=== PATIENT | male | born 1995 | race Caucasian/White ===

== ENCOUNTER 2017-04-05 18:29 | Emergency (ER) | payer SELFPAY ==
[~2017-04-05] VITALS: Ht 195.6 cm; Wt 86.2 kg
--- NOTE | 2017-04-05 19:54 | ED Integumentary General ---
General Chief Complaint: Laceration Stated Complaint: RIGHT FOOT LACERATION Source: patient, spouse (significant other) Exam Limitations: no limitations History of Present Illness Time seen by provider: 19:42 Initial Comments Just prior to arrival the patient stepped on his own unfolded pocket knife while sharpening it on his foot. He has a laceration on the bottom right foot with a lot of pain. He came to the ER by private conveyance. He is had a tetanus shot about 3 or 4 years ago when he had a wire cut him on his left foot. Today's injuries on his right foot. He has no other significant medical history or surgical history. No nausea fevers chills or significant bleeding. Allergies and Home Medications Allergies Coded Allergies: penicillin G (Verified Allergy, Unknown, 04/05/17) Constitutional: No chills, No diaphoresis EENTM: No ear discharge, No ear pain Respiratory: No cough, No short of breath Cardiovascular: No chest pain, No palpitations Gastrointestinal: No abdominal pain, No constipation, No diarrhea, No nausea Genitourinary: No discharge, No dysuria Musculoskeletal: see HPI Skin: see HPI, No pruritus, No rash Psychiatric/Neurological: Denies Numbness, Denies Paresthesia Past Yzgyfcm-Ksclke-Tslakv Hx Patient Social History Alcohol Use: Denies Use Recreational Drug Use: No Smoking Status: Current Everyday Smoker Type Used: Cigarettes (0.25) Recent Foreign Travel: No Contact w/Someone Who Travel: No Physical Exam Vital Signs Vital Sign - Last 12Hours 04/05/17 19:44 Temp 98.1 Pulse 90 Resp 16 B/P (MAP) 134/76 Capillary Refill : Less Than 3 Seconds General Appearance: WD/WN, mild distress HEENT: PERRL/EOMI, pharynx normal Neck: full range of motion, normal inspection Cardiovascular: regular rate, rhythm, no edema Respiratory: lungs clear, normal breath sounds Gastrointestinal: non tender, soft Extremities: normal range of motion, normal capillary refill, other (tendon movement is intact distal to the laceration as well as sensation and motor neuron. He has good cap refill less than 3 seconds in the digits of his right foot.) Neurologic/Psychiatric: alert, oriented x 3 Skin: normal color, warm/dry, other (4 cm linear laceration on the lateral distal portion of the foot just proximal to the fifth and fourth and third digits) Laceration Repair : Wound Location: Lower Extremities (right foot) Wound Length (cm): 5.5 Wound's Depth, Shape: sub Q (shaped like a [employer] swish sign), tendon Wound Explored: clean Irrigated w/ Saline (ccs): 60 Anesthesia: Lidocaine w/ Epi (2%) Volume Anesthetic (ccs): 6 Wound Debrided: minimal Suture: Ethlion Suture Size: 2-0 Number of Sutures: 10 Layer Closure?: 1 Progress Patient was later, position and the foot was cleaned early with chlorhexidine and then iodine. The wound was made numb with 6 cc of 2% lidocaine with epinephrine anesthesia was patient was ascertained to be numb we applied 10 simple interrupted sutures across the wound closing and approximating the wound. The wound was hemostatic and the patient tolerated the procedure well. Progress/Results/Core Measures Results/Orders My Orders Orders - MIN GARG Pertuss(Acell),Tet Adult (Boostrix (04/05/17 20:00) Lidocaine/Epi 2% 1:100,000 (Xylocaine/Ep (04/05/17 20:00) Fentanyl Injection (Sublimaze Injection (04/05/17 20:00) Medications Given in ED Current Medications Medications Dose Ordered Sig/Jony Route Start Time Stop Time Status Last Admin Dose Admin Diphtheria/ Tetanus/Acell Pertussis 0.5 ml ONCE ONCE IM 04/05/17 20:00 04/05/17 20:01 DC 04/05/17 20:00 0.5 ML Fentanyl Citrate 50 mcg ONCE ONCE IM 04/05/17 20:00 04/05/17 20:01 DC 04/05/17 19:59 50 MCG Lidocaine/ Epinephrine 20 ml ONCE ONCE INJ 04/05/17 20:00 04/05/17 20:01 DC 04/05/17 20:00 20 ML Vital Signs/I&O Vital Sign - Last 12Hours 04/05/17 19:44 Temp 98.1 Pulse 90 Resp 16 B/P (MAP) 134/76 Progress Note : Time: 19:52 Progress Note We'll give him some pain meds, tetanus shot and lidocaine and get him sewn up he can follow-up in the ER and about 1 week to 10 days. We will cover him outpatient with Bactrim. Departure Impression Impression: Primary Impression: Laceration of right foot excluding toes without complication Qualified Codes: S91.311A - Laceration without foreign body, right foot, initial encounter Disposition: 01 HOME, SELF-CARE Condition: Improved Departure-Patient Inst. Decision time for Depature: 20:33 Referrals: NO,LOCAL PHYSICIAN (PCP) Primary Care Physician Patient Instructions: Laceration Repair With Stitches (DC) Add. Discharge Instructions: Please clean the wound with regular soap and water as needed. Change the dressing if it is soiled or at least daily. You may also just use Vaseline and keep the wound open to air otherwise. Take the antibiotics 1 tablet by mouth twice a day with food. Use probiotics or yogurt with active culture to prevent the side effects of diarrhea from the antibiotic. If the wound starts getting very swollen and red and more painful or draining purulence or you become nauseated or have fevers he should return to the ER. Otherwise plan on return to the ER in 7-10 days to have the stitches removed. All discharge instructions reviewed with patient and/or family. Voiced understanding. Scripts Hydrocodone/Acetaminophen (Hydrocodon -Acetaminophen 5-325) 1 Each Tablet 1 EACH PO Q6H Y for BREAKTHROUGH PAIN, #12 TAB 0 Refills Prov: MIN GARG 04/05/17 Sulfamethoxazole/Trimethoprim (Bactrim Ds Tablet) 1 Each Tablet 1 EACH PO BID for 7 Days, #14 TAB 0 Refills Prov: MIN GARG 04/05/17 Work/School Note: Work Release Form Date Seen in the Emergency Department: Apr 05, 2017 Return to Work: Apr 06, 2017 Other Restrictions Listed Below: Keep foot elevated until stitches are out. MIN GARG Apr 05, 2017 19:54
[2017-04-05] MEDS ORDERED: TETANUS,DIPTH,PERTUSS P/F (BOOSTRIX) 0.5 ML VIAL IM ONE (20:00)
[2017-04-05] MEDS ORDERED: fentaNYL INJECTION 100 MCG/2 ML AMP IM ONE (20:00)
[2017-04-05] MEDS ORDERED: LIDOCAINE/EPI 2% 1:100,00 (XYLOCAINE) 20 ML VIAL INJ ONE (20:00)
[2017-04-05] MEDS ORDERED: HYDR-3812 PO (20:35)
[2017-04-05] MEDS ORDERED: SULF1TAB35 PO (20:35)
[2017-04-05] MEDS ORDERED: TRIM/SULFAMETH 160/800 (SEPTRA DS) TAB PO ONE (20:45)
[2017-04-05] MEDS: RX-HYDROCODONE/APAP 5/325 MG #4 TAB PK PO PRN (20:48)
== END 2017-04-05 20:55 | disposition home or self-care (01) ==
LOC: ER 18:32
DX: S91.311A Laceration without foreign body, right foot, initial encounter (principal); Z23 Encounter for immunization; W26.0XXA Contact with knife, initial encounter; Y99.8 Other external cause status
CPT/HCPCS: 12002; 90471; 90715; 96372

== ENCOUNTER 2020-09-03 14:50 | Emergency (ER) | payer SELFPAY ==
[~2020-09-03] VITALS: Ht 195 cm; Wt 95.0 kg
[~2020-09-03 14:50] MED LIST: ACHD5005 PO; SULF1TAB35 PO
[2020-09-03 14:56] VITALS: BP 153/93
[2020-09-03] MEDS ORDERED: MUPI22OI2 TP (15:06)
[2020-09-03] MEDS ORDERED: DOXY100T2 PO (15:06)
--- NOTE | 2020-09-03 15:07 | ED Integumentary General ---
General Chief Complaint: Skin/Wound Problems Stated Complaint: R MIDDLE/RING FINGER SWOLLEN, R EAR PIMPLE Nursing Triage Note: Pt here with swollen finger around nail bed x 2 days; also has a spot on his face he is concerned about x "a few wks". Source: patient Exam Limitations: no limitations History of Present Illness Date Seen by Provider: Sep 03, 2020 Time Seen by Provider: 15:02 Initial Comments To ER with right middle finger redness and pus drainage for about 2 days. He also has a spot on his face and to the pubic region of some scabs that continue to drain. Timing/Duration: just prior to arrival Severity: moderate Possible Cause: no cause identified Associated Symptoms: denies symptoms Allergies and Home Medications Allergies Coded Allergies: penicillin G (Verified Allergy, Unknown, 04/05/17) Home Medications Hydrocodone Bit/Acetaminophen 1 Each Tablet, 1 EACH PO Q6H PRN for BREAKTHROUGH PAIN Prescribed by: MIN GARG on 04/05/172034 Sulfamethoxazole/Trimethoprim 1 Each Tablet, 1 EACH PO BID Prescribed by: MIN GARG on 04/05/172034 Patient Home Medication List Home Medication List Reviewed: Yes Review of Systems Review of Systems Constitutional: see HPI; No chills, No fever EENTM: see HPI Respiratory: no symptoms reported Cardiovascular: no symptoms reported Genitourinary: no symptoms reported Musculoskeletal: no symptoms reported Skin: see HPI Psychiatric/Neurological: No Symptoms Reported Endocrine: No Symptoms Reported Past Rkwhuvo-Bpvypz-Bijnab Hx Patient Social History Alcohol Use: Occasionally Uses Type Used: Cigarettes 2nd Hand Smoke Exposure: Yes Recent Infectious Disease Expo: No Recent Hopitalizations: No Immunizations Up To Date Tetanus Booster (TDap): More than 5yrs Seasonal Allergies Seasonal Allergies: No Past Medical History Surgeries: No Physical Exam Vital Signs Vital Signs - First Documented 09/03/20 14:56 Temp 36.4 Pulse 74 Resp 18 B/P (MAP) 153/93 (113) Pulse Ox 97 O2 Delivery Room Air Capillary Refill : Less Than 3 Seconds General Appearance: WD/WN, no apparent distress HEENT: PERRL/EOMI, normal ENT inspection, other (To the right side of the face is an area of slight erythema with some honey colored crust overlying it) Neck: non-tender, full range of motion Respiratory: no respiratory distress Extremities: normal range of motion, non-tender Neurologic/Psychiatric: alert, normal mood/affect, oriented x 3 Skin: normal color, warm/dry Skin Problem Location: face Skin Problem Character: other (There is some erythema to the tip of the right middle finger but I am unable to express any drainage. No significant fluctuance to suggest a felon. No drainable paronychia. A few erythematous macules over the pubic region/within the pubic hair that have a honey colored crust over them.) Procedures/Interventions Suture Size: 2-0 Progress/Results/Core Measures Results/Orders Vital Signs/I&O 09/03/20 14:56 Temp 36.4 Pulse 74 Resp 18 B/P (MAP) 153/93 (113) Pulse Ox 97 O2 Delivery Room Air Blood Pressure Mean: 113 Departure Impression Primary Impression: Impetigo Additional Impression: Paronychia Disposition: 01 HOME, SELF-CARE Condition: Stable Departure-Patient Inst. Decision time for Depature: 15:04 Referrals: NO,LOCAL PHYSICIAN (PCP/Family) Primary Care Physician Patient Instructions: Paronychia, Impetigo (DC) Add. Discharge Instructions: 1. Do your best to clean the crust off of these wounds during the shower and then apply the antibiotic ointment after the shower. Take the oral antibiotic as directed. I am not sure what this will cost at [facility] but if you take this to [facility] with the good Rx card I have provided the doxycycline oral is $10. This will take about 1 to 2 weeks to heal. All discharge instructions reviewed with patient and/or family. Voiced understanding. Scripts Doxycycline Hyclate (Doxycycline Hyclate) 100 Mg Tablet 100 MG PO BID, #20 TAB Prov: RAMIREZ BEEBE APRN 09/03/20 Mupirocin (Mupirocin) 22 Gm Oint...g. 1 GM TP BID, #1 TUBE Prov: RAMIREZ BEEBE APRN 09/03/20 RAMIREZ BEEBE APRN Sep 03, 2020 15:07
== END 2020-09-03 15:18 | disposition home or self-care (01) ==
LOC: EDUNIT# 14:50 → ER 14:53
DX: L01.00 Impetigo, unspecified (principal); L03.011 Cellulitis of right finger; Z77.22 Contact with and (suspected) exposure to environmental tobacco smoke (acute) (chronic); Z88.0 Allergy status to penicillin
CPT/HCPCS: 99282